=== PATIENT | female | born 1945 | race Caucasian/White ===

== ENCOUNTER 2018-05-06 17:41 | Emergency (ER) | payer MEDICARE, BC ==
[~2018-05-06] VITALS: Ht 160 cm; Wt 72.7 kg
[2018-05-06] MEDS ORDERED: PARO10TA85 PO (19:00)
[2018-05-06] MEDS ORDERED: LEVO88TA2 PO (19:00)
[2018-05-06] MEDS ORDERED: OXYB5TAB11 PO (19:00)
[2018-05-06] MEDS ORDERED: normal saline 1000ML IV soln IVB ONE (19:15)
[2018-05-06] MEDS ORDERED: propofol 10mg/ml 20ml vial IV ONE ×2 (19:15→20:10)
[2018-05-06] MEDS ORDERED: IBUP-1985 PO (20:08)
[2018-05-06 20:13] VITALS: BP 188/85
== END 2018-05-06 20:28 | disposition home or self-care (01) ==
LOC: ER 17:41
DX: S43.014A Anterior dislocation of right humerus, initial encounter (principal); Z90.89 Acquired absence of other organs; Z85.3 Personal history of malignant neoplasm of breast; Z79.899 Other long term (current) drug therapy; W19.XXXA Unspecified fall, initial encounter; Y93.89 Activity, other specified; Y92.89 Other specified places as the place of occurrence of the external cause; Y99.9 Unspecified external cause status
CPT/HCPCS: 23650; 73020; 73030; 94760; 99152; 99153; 99285; J2704; J7030

== ENCOUNTER 2018-05-21 10:25 | Outpatient (CLI) | payer MEDICARE, BC ==
[2018-05-21 10:23] VITALS: BP 182/86
[~2018-05-21 10:25] MED LIST: IBUP-1985 PO; LEVO88TA2 PO; OXYB5TAB11 PO; PARO10TA85 PO
== END 2018-05-21 10:57 | disposition home or self-care (01) ==
LOC: ORTHO 10:25
PROVIDERS: ATTEND Nurse Practitioner Family
DX: S43.014A Anterior dislocation of right humerus, initial encounter (principal); Z87.891 Personal history of nicotine dependence; W19.XXXA Unspecified fall, initial encounter; Y93.89 Activity, other specified; Y92.89 Other specified places as the place of occurrence of the external cause; Y99.8 Other external cause status
CPT/HCPCS: 99213

== ENCOUNTER 2018-06-11 11:06 | Outpatient (CLI) | payer MEDICARE, BC ==
[2018-06-11 11:03] VITALS: BP 165/94
== END 2018-06-11 11:46 | disposition home or self-care (01) ==
LOC: ORTHO 11:06
PROVIDERS: ATTEND Nurse Practitioner Family
DX: S43.004D Unspecified dislocation of right shoulder joint, subsequent encounter (principal); M75.101 Unspecified rotator cuff tear or rupture of right shoulder, not specified as traumatic; Z85.3 Personal history of malignant neoplasm of breast; Z90.11 Acquired absence of right breast and nipple; Z87.891 Personal history of nicotine dependence; W19.XXXD Unspecified fall, subsequent encounter
CPT/HCPCS: 99213

== ENCOUNTER 2018-07-02 11:28 | Outpatient (CLI) | payer MEDICARE, BC ==
[2018-07-02 11:28] VITALS: BP 150/83
== END 2018-07-02 12:01 | disposition home or self-care (01) ==
LOC: ORTHO 11:28
PROVIDERS: ATTEND Nurse Practitioner Family
DX: S43.004D Unspecified dislocation of right shoulder joint, subsequent encounter (principal); M75.101 Unspecified rotator cuff tear or rupture of right shoulder, not specified as traumatic; X58.XXXD Exposure to other specified factors, subsequent encounter
CPT/HCPCS: G0463

== ENCOUNTER 2018-07-30 11:31 | Outpatient (CLI) | payer MEDICARE, BC ==
[2018-07-30 11:32] VITALS: BP 156/68
== END 2018-07-30 12:12 | disposition home or self-care (01) ==
LOC: ORTHO 11:31
PROVIDERS: ATTEND Nurse Practitioner Family
DX: S43.004D Unspecified dislocation of right shoulder joint, subsequent encounter (principal); M75.101 Unspecified rotator cuff tear or rupture of right shoulder, not specified as traumatic; X58.XXXD Exposure to other specified factors, subsequent encounter
CPT/HCPCS: 99213

== ENCOUNTER 2018-09-04 13:31 | Outpatient (CLI) | payer MEDICARE, BC ==
[2018-09-04 13:35] VITALS: BP 150/81
== END 2018-09-04 15:23 | disposition home or self-care (01) ==
LOC: ORTHO 13:31
PROVIDERS: ATTEND Orthopaedic Surgery
DX: S43.004D Unspecified dislocation of right shoulder joint, subsequent encounter (principal); M75.01 Adhesive capsulitis of right shoulder; X58.XXXD Exposure to other specified factors, subsequent encounter
CPT/HCPCS: 73030; 99213